=== PATIENT | female | born 1935 | race Caucasian/White ===

== ENCOUNTER → 2016-11-29 | Outpatient (CLI) | payer OTHER, MEDICARE | LOC: CIMAGING 15:03 | PROVIDERS: ATTEND Internal Medicine Critical Care Medicine | DX: J42 Unspecified chronic bronchitis (principal); G25.9 Extrapyramidal and movement disorder, unspecified | CPT/HCPCS: 71020-PO ==

== ENCOUNTER → 2017-01-18 | Outpatient (CLI) | payer OTHER, MEDICARE | LOC: BHFA 10:00 | PROVIDERS: ATTEND Internal Medicine Cardiovascular Disease | DX: R06.02 Shortness of breath (principal) ==

== ENCOUNTER → 2017-01-21 | Outpatient (CLI) | payer OTHER, MEDICARE | LOC: BHFA 14:30 | PROVIDERS: ATTEND Internal Medicine Pulmonary Disease | DX: R06.09 Other forms of dyspnea (principal) ==

== ENCOUNTER → 2017-02-15 | Outpatient (CLI) | payer OTHER, MEDICARE | LOC: CIMAGING 12:53 | PROVIDERS: ATTEND Nurse Practitioner | DX: N63 Unspecified lump in breast (principal) | CPT/HCPCS: 76641; G0206 ==

== ENCOUNTER 2017-06-01 11:36 | Day surgery (SDC) | payer OTHER, MEDICARE ==
[2017-06-01] MEDS ORDERED: LIDOCAINE 1% 300 MG/30 ML SDV SC ONE (11:49)
--- NOTE | 2017-06-01 12:36 | PDPROPOC ---
Sedation Plan of Care Sedation Plan of Care: vital signs stable, mental status noted, patient educated of risks, benefits, alternatives ASA Classification: ASA 3 Mallampati Score: Class 3 Mallampati Reference Image: Patient passed 3-3-2 rule?: Yes
--- NOTE | 2017-06-01 12:36 | PDGENHP ---
History & Physical Chief Complaint: LINQ end of life History of Present Illness: had LINQ implanted for syncope, has not had further episode Pertinent Past, Social, Family History: None pertaining to current condition Relevant Physical Exam: CV examined and is normal Cardiorespiratory Assessment: Chest CTA No rales or rhonchi. S1S2 resulr. no S3
[2017-06-01] MEDS ORDERED: LIDOCAINE 1% 300 MG/30 ML SDV ONE (12:38)
--- NOTE | 2017-06-02 15:14 | EPPROC ---
Electrophysiology Procedure Note: Procedure: LINQ explant Indication: LINQ at [facility] Procedure: Parts prepared and draped. LA given. Incision placed. Subcutaneous tissue dissected. LINQ explanted. Staple placed. Dry sterile dressing placed. 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 Conclusion: Successful LINQ explant Patient Problems: Problems Problem Status Onset Supraventricular tachycardia Active
== END 2017-06-01 13:30 | disposition home or self-care (01) ==
LOC: FCATH 11:36
PROVIDERS: ATTEND Internal Medicine Cardiovascular Disease
PROC: 0JPT02Z Removal of Monitoring Device from Trunk Subcutaneous Tissue and Fascia, Open Approach (ICD-10-PCS; principal; 2017-06-01)
DX: Z45.09 Encounter for adjustment and management of other cardiac device (principal)

== ENCOUNTER 2017-06-17 16:29 | Emergency (ER) | payer OTHER, MEDICARE ==
[2017-06-17 16:42] VITALS: RESP 18; TEMP 97.7
[2017-06-17] MEDS ORDERED: ASPIRIN 81 MG CHEWABLE TAB PO ONE (16:49)
[2017-06-17] MEDS ORDERED: NS 500 ML IV ONE (16:49)
--- NOTE | 2017-06-17 16:54 | EDPHY ---
H & P Stated Complaint: sore throat, body aches, congestion started yesterday Time Seen by Provider: 06/17/17 16:39 HPI/ROS: CHIEF COMPLAINT: Sore throat, shortness of breath, left upper back and arm pain HISTORY OF PRESENT ILLNESS: Patient is an 82-year-old female with a history of COPD who wears oxygen at night, also unknown arrhythmia that required ablation several years ago not on anticoagulants comes to the emergency department complaining of 24 hours of sore throat, increased work of breathing, left upper back and left arm pain. No fevers. No cough. Her symptoms did worsen with exertion this morning when she was trying to exercise. No diaphoresis. No nausea vomiting. No abdominal pain. No headache or lightheadedness. Her pain does not worsen with movement or palpation. REVIEW OF SYSTEMS: Constitutional: denies: chills, fever, recent illness, recent injury EENTM: See HPI Respiratory: See HPI Cardiac: See HPI Gastrointestinal/Abdominal: denies: abdominal pain, diarrhea, nausea, vomiting, blood streaked stools Genitourinary: denies: dysuria, frequency, hematuria, pain Musculoskeletal: denies: joint pain, muscle pain Skin: denies: lesions, rash, jaundice, bruising Neurological: denies: headache, numbness, paresthesia, tingling, dizziness, weakness Hematologic/Lymphatic: denies: blood clots, easy bleeding, easy bruising Immunologic/allergic: denies: HIV/AIDS, transplant EXAM: GENERAL: Well-appearing, well-nourished and in no acute distress. HEAD: Atraumatic, normocephalic. EYES: Pupils equal round and reactive to light, extraocular movements intact, sclera anicteric, conjunctiva are normal. ENT: TMs normal, nares patent, oropharynx clear without exudates. Moist mucous membranes. NECK: Normal range of motion, supple without lymphadenopathy or JVD. LUNGS: Left lower lobe rhonchi HEART: Regular rate and rhythm without murmurs, rubs or gallops. ABDOMEN: Soft, nontender, normoactive bowel sounds. No guarding, no rebound. No masses appreciated. BACK: No CVA tenderness, no spinal tenderness, step-offs or deformities EXTREMITIES: Normal range of motion, no pitting or edema. No clubbing or cyanosis. NEUROLOGICAL: Cranial nerves II through XII grossly intact. Normal speech, normal gait. 5/5 strength, normal movement in all extremities, normal sensation PSYCH: Normal mood, normal affect. SKIN: Warm, dry, normal turgor, no visible rashes or lesions. Source: Patient Exam Limitations: No limitations - Personal History Tetanus Vaccine Date: 2002 - Medical/Surgical History Hx Asthma: No Hx Chronic Respiratory Disease: Yes Hx Diabetes: No Hx Cardiac Disease: Yes Hx Renal Disease: No Hx Cirrhosis: No Hx Alcoholism: No Hx HIV/AIDS: No Hx Splenectomy or Spleen Trauma: No Other PMH: COPD, spinal stenosis, djd, c4-5 fusion, neuropathy, previous cardiac ablation, bilat cataracts, bilat knee meniscus tears, expl lap SBO/ 5 LUMPECTOMIES ON BREASTS,TONSILS,THORACIC OUTLET - Social History Smoking Status: Never smoked Alcohol Use: Sober Drug Use: None Constitutional: Initial Vital Signs Temperature (C) 36.5 C 06/17/17 16:40 Heart Rate 79 06/17/17 16:40 Respiratory Rate 18 06/17/17 16:40 Blood Pressure 174/91 H 06/17/17 16:40 O2 Sat (%) 92 06/17/17 16:40 O2 Delivery Mode Room Air Allergies/Adverse Reactions: adhesive Allergy (Verified 06/17/17 16:39) Rash Benzodiazepines Allergy (Verified 06/17/17 16:39) ibuprofen Allergy (Verified 06/17/17 16:39) oxycodone Allergy (Verified 06/17/17 16:39) Home Medications: Medication Instructions Recorded clonazePAM [klonoPIN (*)] 1 mg PO HS 02/07/14 GABAPENTIN 300 mg PO BID 05/01/14 Pramipexole Dihydrochloride 0.25 mg PO DAILY AT 6PM 05/01/14 Symbicort 160-4.5 Mcg Inh (RX) 2 NASAL DAILY 05/01/14 Alendronate Sodium 70 mg PO DAILY 06/01/17 Ipratropium 0.03% Nasal 2 NASAL DAILY 06/01/17 Pramipexole Di-HCl 0.5 mg PO HS 06/01/17 AZITHROMYCIN [Z-PACK] 250 mg PO DAILY #6 tab 06/17/17 Medical Decision Making - Diagnostics EKG Interpretation: An EKG obtained and was read and documented in trace view. Please see trace view for full reading and report. Sinus rhythm with left bundle branch block and repolarization abnormality, unchanged from previous ED Course/Re-evaluation: I did look through previous EKGs and no AFib or SVT seen. 5:45 p.m. the patient's chest x-ray is consistent with bronchitis. Her D-dimer is negative with age adjustment. Troponin is negative. 6:40 p.m. the patient is asymptomatic. We discussed her blood work and x-ray results. She wishes to be treated for bronchitis with azithromycin. She states that this has worked well for her in the past. She is susceptible because of her history of COPD. We discussed the fact that I cannot rule out cardiac disease at this point and I recommended admission the hospital for further testing. She declined. I gave her strict warnings to return and called an ambulance if her symptoms worsen. She understands and agrees. Differential Diagnosis: Partial list of the Differential diagnosis considered include but were not limited to; bronchitis, pneumonia, acute coronary disease, PE and although unlikely based on the history and physical exam, I also considered pneumothorax , cancer, aneurysm. I discussed these differential diagnoses and the plan with the patient as well as the usual and expected course. The patient understands that the diagnosis is provisional and that in medicine we are not always correct and that further workup is often warranted. Usual and customary warnings were given. All of the patient's questions were answered. The patient was instructed to return to the emergency department should the symptoms at all worsen or return, otherwise to followup with the physician as we discussed. - Data Points Laboratory Results: Laboratory Results 06/17/17 17:15 06/17/17 17:15 06/17/17 17:00 Nasal Influenza A PCR NEGATIVE FOR FLU A (NEGATIVE) Nasal Influenza B PCR NEGATIVE FOR FLU B (NEGATIVE) Medications Given: Discontinued Medications Aspirin (Aspirin) 324 mg PO EDNOW ONE Stop: 06/17/17 16:50 Last Admin: 06/17/17 17:00 Dose: 324 mg Azithromycin (Zithromax) 500 mg PO EDNOW ONE PRN Reason: Protocol Stop: 06/17/17 18:42 Last Admin: 06/17/17 18:52 Dose: 500 mg Sodium Chloride (Ns) 500 mls @ 0 mls/hr IV EDNOW ONE; Wide Open PRN Reason: Protocol Stop: 06/17/17 16:50 Last Admin: 06/17/17 17:01 Dose: 500 mls Departure - Departure Disposition: Home, Routine, Self-Care Clinical Impression: Bronchitis Condition: Fair Instructions: Acute Bronchitis (ED) Additional Instructions: Return immediately if your symptoms worsen as we discussed. Referrals: Eda Lange MD [Primary Care Provider] - As per Instructions Prescriptions: AZITHROMYCIN [Z-PACK] 250 mg PO DAILY #6 tab
--- NOTE | 2017-06-17 16:58 | CPEKG ---
Heart Rate: 73 RR Interval: 822 P-R Interval: 180 QRSD Interval: 118 QT Interval: 412 QTC Interval: 454 P Hope: 45 QRS Hope: -43 T Wave Hope: 106 EKG Severity - ABNORMAL ECG - EKG Impression: SINUS RHYTHM EKG Impression: LEFT ATRIAL ABNORMALITY EKG Impression: INCOMPLETE LEFT BUNDLE BRANCH BLOCK EKG Impression: LVH WITH SECONDARY REPOLARIZATION ABNORMALITY EKG Impression: Similar to previous Electronically Signed By: Patrick Titus 17-Jun-2017 16:59:59
[2017-06-17 17:14] LABS: STREP SCREEN RAPID NEGATIVE (NEGATIVE)
[2017-06-17 17:24] LABS: % IMMATURE GRANULYOCYTES 0.7 % (0.0-1.1); ABSOLUTE IMMATURE GRANULOCYTES 0.08 10^3/uL (0.00-0.10); ADD DIFF? NO; ADD MORPH? NO; ADD SCAN? NO; ATYPICAL LYMPHOCYTE FLAG 0 (0-99); FRAGMENT RBC FLAG 0 (0-99); HEMATOCRIT 40.2 % (38.0-47.0); HEMOGLOBIN 13.6 g/dL (12.6-16.3); LEFT SHIFT FLG 0 (0-99); LIPEMIA HEMOLYSIS FLAG 90 (0-99); MEAN CELL HEMOGLOBIN 32.1 pg (27.9-34.1); MEAN CELL HEMOGLOBIN CONCENTR. 33.8 g/dL (32.4-36.7); MEAN CELL VOLUME 94.8 fL (81.5-99.8); PLATELET CLUMPS FLAG 0 (0-99); PLATELET COUNT 277 10^3/uL (150-400); RED BLOOD CELL COUNT 4.24 10^6/uL (4.18-5.33); RED CELL DISTRIBUTION WIDTH 13.3 % (11.5-15.2)
[2017-06-17 17:34] LABS: PROTIME(PATIENT) 12.9 SEC (12.0-15.0)
[2017-06-17 17:35] LABS: APTT 24.3 SEC (23.0-38.0)
[2017-06-17 17:36] LABS: ANION GAP 9 mEq/L (8-16); BILIRUBIN,TOTAL 0.5 mg/dL (0.1-1.4); CALCIUM 9.2 mg/dL (8.5-10.4); CARBON DIOXIDE 28 mEq/l (22-31); CHLORIDE 101 mEq/L (97-110); CREATININE 0.6 mg/dL (0.6-1.0); GLOMERULAR FILTRATION RATE > 60; GLUCOSE 97 mg/dL (70-100); POTASSIUM 3.9 mEq/L (3.5-5.2); SODIUM 138 mEq/L (134-144)
[2017-06-17 17:49] LABS: TROPONIN I 0.013 ng/mL (0.000-0.034)
[2017-06-17 18:41] VITALS: BP 150/80; PULSE 65; O2SAT 92
[2017-06-17] MEDS ORDERED: AZITHROMYCIN 250 MG TAB PO ONE (18:41)
== END 2017-06-17 18:55 | disposition home or self-care (01) ==
LOC: CED 16:29
DX: J20.9 Acute bronchitis, unspecified (principal); J44.9 Chronic obstructive pulmonary disease, unspecified; E86.9 Volume depletion, unspecified
CPT/HCPCS: 71020-PO; 80048-PO; 82247-PO; 83605-PO; 84484-PO; 85025-PO; 85378-PO; 85610-PO; 85730-PO; 87400-PO; 87880-PO

== ENCOUNTER → 2017-07-22 | Outpatient (CLI) | payer OTHER, MEDICARE | LOC: CIMAGING 07:50 | PROVIDERS: ATTEND Internal Medicine | DX: Z12.31 Encounter for screening mammogram for malignant neoplasm of breast (principal) | CPT/HCPCS: G0202 ==

== ENCOUNTER → 2018-04-24 | Outpatient (CLI) | payer OTHER, MEDICARE | LOC: BHFA 14:00 | PROVIDERS: ATTEND Internal Medicine Cardiovascular Disease | DX: R55 Syncope and collapse (principal); R06.02 Shortness of breath ==

== ENCOUNTER → 2018-08-24 | Outpatient (CLI) | payer OTHER, MEDICARE | LOC: CIMAGING 08:51 | PROVIDERS: ATTEND Internal Medicine | DX: Z12.31 Encounter for screening mammogram for malignant neoplasm of breast (principal) ==

== ENCOUNTER 2018-10-28 11:36 | Emergency (ER) | payer OTHER, MEDICARE ==
--- NOTE | 2018-10-28 11:45 | EDPHY ---
H & P Time Seen by Provider: 10/28/18 11:45 HPI/ROS: CHIEF COMPLAINT: Ankle and elbow pain after a fall HISTORY OF PRESENT ILLNESS: This is an 83-year-old female who missed a step while exiting her garage, causing her to fall. She twisted her left ankle in fall and pulled the skin off of her right elbow when she landed. She did not strike her head or lose consciousness. She is not taking any anticoagulants. She was able to get up on her own and walked into the emergency department. She is complaining of pain along the lateral aspect of her left ankle, worse with movement of the ankle. No numbness or weakness. She does not have any bony right arm pain. She denies any preceding symptoms and is certain that she fell because she missed a step. REVIEW OF SYSTEMS: A ten system review of systems was performed and is negative with the exception of the items mentioned in the HPI. Past medical history: 1. COPD on home O2 at night 2. Tachyarrhythmia status post ablation 3. Degenerative joint disease Past surgical history: 1. C4-5 fusion 2. L4-5 fusion 3. Bilateral cataracts 4. Breast lumpectomies 5. Exploratory laparotomy 6. Tonsillectomy 7. Thoracic outlet syndrome 8. Cardiac ablation 9. Right knee replacement March 2018. Social history: She is recently . She is here with her sister. She does not use and never has used tobacco products. No alcohol. 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 General Appearance: Alert. Vital signs reviewed. Blood pressure 148/82. Head: Normocephalic atraumatic. Eyes: Pupils equal and round, no conjunctival injection, no discharge. Anicteric. ENT, Mouth: Mucous membranes are moist, no oropharyngeal erythema or edema. Neck: Nontender to palpation over the cervical spine in the midline and no pain with active range of motion. Respiratory: Lungs are clear to auscultation; no wheezes, rales, or rhonchi. Cardiovascular: Regular rate and rhythm; no murmur, rub, or gallop. Gastrointestinal: Abdomen is soft and nontender, no masses or organomegaly, bowel sounds normal. Skin: Warm and dry, no rashes on exposed skin, normal color. There is a jagged skin tear along the lateral aspect of her right elbow, the tear measures 10 cm in length. No active bleeding. Back: Nontender to palpation over the thoracolumbar spine. No CVAT. Extremities: No lower extremity edema, no calf tenderness or swelling. There is tenderness just below the left lateral malleolus with some early bruising distal to that site. No significant swelling of the left ankle. She is able to actively range her left ankle. No tenderness with palpation of the left hip or knee. She has full active range of motion of her right shoulder, right elbow , and right wrist. Pulses: 2+ bilateral radial and dorsalis pedis pulses. Neurological: Alert and oriented. Moving all four extremities easily and equally. Psychiatric: Normal affect. - Personal History Tetanus Vaccine Date: 2002 - Medical/Surgical History Hx Asthma: No Hx Chronic Respiratory Disease: Yes Hx Diabetes: No Hx Cardiac Disease: Yes Hx Renal Disease: No Hx Cirrhosis: No Hx Alcoholism: No Hx HIV/AIDS: No Hx Splenectomy or Spleen Trauma: No Other PMH: COPD, spinal stenosis, djd, c4-5 fusion, neuropathy, previous cardiac ablation, bilat cataracts, bilat knee meniscus tears, expl lap SBO/ 5 LUMPECTOMIES ON BREASTS,TONSILS,THORACIC OUTLET - Social History Smoking Status: Never smoked Constitutional: Initial Vital Signs Temperature (C) 36.3 C 10/28/18 11:50 Heart Rate 75 10/28/18 11:50 Respiratory Rate 18 10/28/18 11:50 Blood Pressure 148/82 H 10/28/18 11:50 O2 Sat (%) 92 10/28/18 11:50 O2 Delivery Mode Room Air Allergies/Adverse Reactions: adhesive Allergy (Verified 10/28/18 11:48) Rash Benzodiazepines Allergy (Verified 10/28/18 11:48) ibuprofen Allergy (Verified 10/28/18 11:48) oxycodone Allergy (Verified 10/28/18 11:48) Home Medications: Medication Instructions Recorded clonazePAM [klonoPIN (*)] 1 mg PO HS 02/07/14 GABAPENTIN 300 mg PO BID 05/01/14 Pramipexole Dihydrochloride 0.25 mg PO DAILY AT 6PM 05/01/14 Symbicort 160-4.5 Mcg Inh (RX) 2 NASAL DAILY 05/01/14 Alendronate Sodium 70 mg PO DAILY 06/01/17 Pramipexole Di-HCl 0.5 mg PO HS 06/01/17 Medical Decision Making - Diagnostics Imaging Results: Imaging Impressions Ankle X-Ray 10/28/18 12:07 Impression: Negative left ankle series. ED Course/Re-evaluation: I reviewed the patient's left ankle x-ray. No evidence of fracture or dislocation. I am diagnosing her with ankle sprain and she is being placed in a Velcro ankle stirrup brace. Her left elbow skin tear was anesthetized with LET. The wound was cleaned, Steri-Strips were applied, and a nonadherent dressing was placed. Wound care was provided by the emergency department staff. She is given instructions about continued wound care at home. There is no evidence of other injury to her arm--such as fracture, dislocation, compartment syndrome, olecranon bursitis , or abrasion. Skin tear is superficial and does not require suturing. Her tetanus was updated in the department. - Data Points Medications Given: Discontinued Medications Acetaminophen (Tylenol) 1,000 mg PO EDNOW ONE Stop: 10/28/18 12:28 Last Admin: 10/28/18 12:30 Dose: 1,000 mg Diphtheria/Tetanus/Acell Pertussis (Boostrix) 0.5 ml IM .ONCE ONE Stop: 10/28/18 12:01 Last Admin: 10/28/18 12:12 Dose: 0.5 ml Tetracaine/Epinephrine/Lidocaine (Let Gel Topical) 1 ea TP EDNOW ONE Stop: 10/28/18 12:00 Last Admin: 10/28/18 12:06 Dose: 1 ea Departure - Departure Disposition: Home, Routine, Self-Care Clinical Impression: Left ankle sprain Qualifiers: Encounter type: initial encounter Involved ligament of ankle: unspecified ligament Qualified Code(s): S93.402A - Sprain of unspecified ligament of left ankle, initial encounter Skin tear of elbow without complication Qualifiers: Encounter type: initial encounter Laterality: right Qualified Code(s): S51.011A - Laceration without foreign body of right elbow, initial encounter Condition: Good Instructions: Ankle Sprain (ED), Ankle Stirrup Splint (ED), Skin Tear (ED) Additional Instructions: It is fine to take Tylenol 650-1000 mg every 4 hr as needed for pain. Do not take more than 3000 mg in a 24 hr time period. Referrals: Sophie Hughes MD [Primary Care Provider] - As per Instructions
[2018-10-28] MEDS ORDERED: LET GEL TOPICAL 1 EA SYR TP ONE (11:59)
[2018-10-28] MEDS ORDERED: TDAP ADULT 0.5 ML INJ (BOOSTRIX) IM ONE (12:00)
[2018-10-28] MEDS ORDERED: ACETAMINOPHEN 325 MG TAB PO ONE (12:07)
[2018-10-28] MEDS ORDERED: ACETAMINOPHEN 500 MG TAB PO ONE (12:27)
[2018-10-28 13:23] VITALS: BP 139/73
== END 2018-10-28 13:21 | disposition home or self-care (01) ==
LOC: CED 11:36
DX: S93.402A Sprain of unspecified ligament of left ankle, initial encounter (principal); S51.011A Laceration without foreign body of right elbow, initial encounter; Z23 Encounter for immunization; W10.8XXA Fall (on) (from) other stairs and steps, initial encounter; Y92.008 Other place in unspecified non-institutional (private) residence as the place of occurrence of the external cause; Y99.9 Unspecified external cause status
CPT/HCPCS: 73610; 90471; 90715; 99283; L4350

== ENCOUNTER 2018-11-02 09:21 | Emergency (ER) | payer OTHER, MEDICARE ==
[2018-11-02 09:34] VITALS: BP 139/74
--- NOTE | 2018-11-02 09:59 | EDPHY ---
H & P Stated Complaint: PT. here d/t f/u rfa skin tear, 10/28, states started bleeding yest. Time Seen by Provider: 11/02/18 09:30 HPI/ROS: Chief Complaint: Wound check HPI: 83-year-old woman who sustained a skin tear to her right forearm 5 days ago after a fall. Patient had the wound Steri-Strips in the emergency department. She was seen by her primary care physician's office 2 days ago. A occlusive dressing was placed over the wound. She is now concerned because there is of blood and discharged as collected under the dressing. Denies any fevers or chills. No increasing pain. No nausea or vomiting. No other complaints at this time. ROS: 10 systems were reviewed and were negative except those elements noted in the HPI. Social History: No smoking, no alcohol, no recreational drug use Family History: non-contributory Physical Exam: Gen: Awake, Alert, No Distress HEENT: Nose: no rhinorrhea Eyes: PERRLA, EOMI Mouth: Moist mucosa Neck: Supple, no JVD Ext: Right forearm: There is a skin tear under a occlusive Tegaderm dressing with a collection of purulent discharge. This has been removed. There is no erythema or cellulitis. Skin: no rash Neuro: CN II-XII intact, Sensation grossly intact, Strength 5/5 in bilateral upper and lower extremities - Personal History Current Tetanus Diphtheria and Acellular Pertussis (TDAP): Yes Tetanus Vaccine Date: 10/28/2018 - Medical/Surgical History Hx Asthma: No Hx Chronic Respiratory Disease: Yes Hx Diabetes: No Hx Cardiac Disease: Yes Hx Renal Disease: No Hx Cirrhosis: No Hx Alcoholism: No Hx HIV/AIDS: No Hx Splenectomy or Spleen Trauma: No Other PMH: COPD, spinal stenosis, djd, c4-5 fusion, neuropathy, previous cardiac ablation, bilat cataracts, bilat knee meniscus tears, expl lap SBO/ 5 LUMPECTOMIES ON BREASTS,TONSILS,THORACIC OUTLET - Social History Smoking Status: Never smoked Constitutional: Initial Vital Signs Temperature (C) 36.4 C 11/02/18 09:29 Heart Rate 85 11/02/18 09:29 Respiratory Rate 18 11/02/18 09:29 Blood Pressure 139/74 H 11/02/18 09:29 O2 Sat (%) 94 11/02/18 09:29 O2 Delivery Mode Room Air Allergies/Adverse Reactions: adhesive Allergy (Verified 11/02/18 09:28) Rash Benzodiazepines Allergy (Verified 11/02/18 09:28) ibuprofen Allergy (Verified 11/02/18 09:28) oxycodone Allergy (Verified 11/02/18 09:28) Home Medications: Medication Instructions Recorded clonazePAM [klonoPIN (*)] 1 mg PO HS 02/07/14 GABAPENTIN 300 mg PO BID 05/01/14 Pramipexole Dihydrochloride 0.25 mg PO DAILY AT 6PM 05/01/14 Symbicort 160-4.5 Mcg Inh (RX) 2 NASAL DAILY 05/01/14 Alendronate Sodium 70 mg PO DAILY 06/01/17 Pramipexole Di-HCl 0.5 mg PO HS 06/01/17 Medical Decision Making ED Course/Re-evaluation: 83-year-old woman who sustained a skin tear 5 days ago door forearm was appropriately treated here. She has since had an occlusive dressing put on and has developed an infection of the fluid collection. There is no evidence of a cellulitis at this time. I removed the occlusive dressing. The area has been irrigated and cleaned. A sterile abscess or bent nonocclusive dressing has been replaced. Patient has been instructed to not put any sort of occlusive dressing over this. She can return here or follow up with primary for wound check. Departure - Departure Disposition: Home, Routine, Self-Care Clinical Impression: Visit for wound check, Wound infection Condition: Good Instructions: Skin Tear (ED) Additional Instructions: Please do not put any sort of dressing that prevents airflow to the wound. You may replace any gauze or dressing that become saturated with fluids. Leave the Steri-Strips in place until they fall off. Follow up with her primary care physician or return to the emergency department in about a week for wound check. Return sooner for increasing redness, worsening discharge from the wound, fevers , increasing pain, or any other concerns. Referrals: Sophie Hughes MD [Primary Care Provider] - As per Instructions
== END 2018-11-02 10:20 | disposition home or self-care (01) ==
LOC: CED 09:21
DX: Z48.00 Encounter for change or removal of nonsurgical wound dressing (principal); S51.011D Laceration without foreign body of right elbow, subsequent encounter
CPT/HCPCS: 99282-ER

== ENCOUNTER → 2019-01-05 | Outpatient (CLI) | payer OTHER, MEDICARE | LOC: CIMAGING 07:52 ==